=== PATIENT | female | born 1965 | race Caucasian/White ===

== ENCOUNTER 2019-05-16 11:55 | Emergency (ER) | payer BC ==
[2019-05-16 12:10] VITALS: BMI 24.3
--- NOTE | 2019-05-16 13:55 | PDOC ---
History of Present Illness - General Chief Complaint: Pain, Acute Stated Complaint: ABDOMINAL PAIN, SENT BY DOCTOR Time Seen by Provider: 05/16/19 12:26 History Source: Patient Exam Limitations: No Limitations - History of Present Illness Initial Comments: 05/16/19 13:57 53-year-old female status post Ross procedure for AVBS at [place] presents to the ED with complaints of pain to her right lower ribs worsened with movement for the past 2 days intermittently. Patient states took Motrin this morning morning which resolved her symptoms but when she called the pickling drum operator Dr. Rocha, he stated to go to the ER for chest x-ray since she did have pleural effusion postoperatively and finished her Lasix about 5 days ago. Patient denies shortness of breath, fever, nausea, or dizziness. Is this a multiple visit Asthma Patient?: No Timing/Duration: intermittent ( x 2 days) Severity: mild Associated Symptoms: reports: chest pain Aspirin Received prior to arrival: Yes: 81 mg x 1 Past History - Travel Traveled outside of the country in the last 30 days: No Close contact w/someone who was outside of country & ill: No - Past Medical History Allergies/Adverse Reactions: Allergies Allergy/AdvReac Type Severity Reaction Status Date / Time No Known Allergies Allergy Verified 05/16/19 12:10 Home Medications: Ambulatory Orders Aspirin [ASA -] 81 mg PO DAILY 05/16/19 Metoprolol Tartrate [Lopressor -] 50 mg PO BID 05/16/19 Cardiac Disorders: Yes (Ross Procedure ( 2 valves replaced)) COPD: No - Psycho Social/Smoking Cessation Hx Smoking History: Unknown if ever smoked Have you smoked in the past 12 months: No Information on smoking cessation initiated: No Hx Alcohol Use: No Drug/Substance Use Hx: No Patient Lives Alone: No Lives with/in: spouse/SO Review of Systems - Review of Systems Able to Perform ROS?: Yes Constitutional: No: Symptoms Reported HEENTM: No: Symptoms Reported Respiratory: No: Symptoms reported Cardiac (ROS): Yes: Chest Pain ABD/GI: No: Symptoms Reported : No: Symptoms Reported Musculoskeletal: Yes: Joint Pain (right lower ribs) Integumentary: No: Symptoms Reported Neurological: No: Symptoms reported Endocrine: No: Symptoms Reported Hematologic/Lymphatic: No: Symptoms Reported *Physical Exam - Vital Signs Last Vital Signs Temp Pulse Resp BP Pulse Ox 97.8 F 78 16 101/55 L 100 05/16/19 12:07 05/16/19 12:07 05/16/19 12:07 05/16/19 12:07 05/16/19 12:07 - Physical Exam General Appearance: Yes: Nourished, Appropriately Dressed. No: Apparent Distress HEENT: negative: Pale Conjunctivae Neck: positive: Supple Respiratory/Chest: positive: Chest Tender (nonreprucibled ), Lungs Clear, Normal Breath Sounds. negative: Respiratory Distress, Accessory Muscle Use Cardiovascular: positive: Regular Rhythm, Regular Rate. negative: Murmur Gastrointestinal/Abdominal: positive: Soft. negative: Tenderness Integumentary: positive: Normal Color, Warm, Moist, Other (Healed incisions to mid sternum and epigastric region) Neurologic: positive: Motor Strength 5/5 (Ambulatory) Heart Score/ECG Review - ECG Intrepretation Rhythm: Regular Rhythm (Rate 81. No ST elevation or depression. Prolonged QTC at 413 ms) ED Treatment Course - LABORATORY CBC & Chemistry Diagram: 05/16/19 14:15 05/16/19 14:15 - RADIOLOGY Radiology Studies Ordered: Category Date Time Status CHEST PA & LAT [RAD] Stat Radiology 05/16/19 12:31 Taken Medical Decision Making - Medical Decision Making 05/16/19 13:01 Chief complaint: Patient sent here by pickling drum operator Dr. Berkowitz to rule out pleural effusion secondary to recent Ross procedure for aortic valve stenosis. Patient states did have pleural effusion postoperatively but finished her Lasix approximately 5 days ago. Patient states similar pain with pleural effusion following surgery . No other complaints patient took Motrin with good effect and currently asymptomatic Exam: Patient with normal vital signs lungs clear to auscultation no reproducible pain to the right lower ribs where she complains of discomfort initially. Plan: Patient order for chest x-ray. Will consult pickling drum operator once resulted 05/16/19 14:[address] aiken, radiologist and states small right pleural effusion noted without other acute pathology. Call placed to Dr. Berkowitz/Dr. Alvarez to discuss findings 05/16/19 14:[address] Goel who is recommending a CT of the chest to rule out pericardial effusion along with visualization of the extent of effusion to the right lower lobe. Patient will have labs IV placed and EKG performed. 05/16/19 15:19 Laboratory Tests 05/16/19 05/16/19 14:15 14:15 WBC 6.7 Hgb 9.3 L Hct 27.8 L Plt Count 494 H Eosinophils % 5.6 H Sodium 142 Potassium 4.0 Chloride 108 H Carbon Dioxide 26 Anion Gap 8 BUN 9.2 Creatinine 0.5 L AST 13 L ALT 23 Alkaline Phosphatase 122 H Total Protein 6.5 Albumin 3.1 L Patient remains asymptomatic. Patient currently in CT Discharge - Follow up/Referral Referrals: Jessica Mcconnell MD [Primary Care Provider] - - Patient Discharge Instructions - Post Discharge Activity
[2019-05-16 14:41] LABS: BASO % 0.3 % (0-2.0); EOS % 5.6 % (0-4.5); HEMATOCRIT 27.8 % (32.4-45.2); HEMOGLOBIN 9.3 GM/dL (10.7-15.3); LYMPH % 22.3 % (8-40); MCH 29.3 pg (25.7-33.7); MCHC 33.4 g/dl (32.0-36.0); MEAN CELL VOLUME 87.6 fl (80-96); MEAN PLT VOLUME 7.5 fl (7.5-11.1); MONO % 9.9 % (3.8-10.2); NEUT % 61.9 % (42.8-82.8); PLATELET COUNT 494 K/MM3 (134-434); RBC 3.18 M/mm3 (3.60-5.2); WHITE BLOOD COUNT 6.7 K/mm3 (4.0-10.0)
[2019-05-16 15:05] LABS: ALBUMIN 3.1 g/dl (3.4-5.0); BILIRUBIN,TOTAL 0.6 mg/dL (0.2-1); BLOOD UREA NITROGEN 9.2 mg/dL (7-18); CALCIUM 8.9 mg/dL (8.5-10.1); CREATININE 0.5 mg/dL (0.55-1.3); TOT PROT 6.5 g/dl (6.4-8.2)
[2019-05-16 16:46] VITALS: BP 108/91; PULSE 81; TEMP 98.3
--- NOTE | 2019-05-16 16:49 | PDOC ---
*Physical Exam - Vital Signs Last Vital Signs Temp Pulse Resp BP Pulse Ox 97.8 F 78 16 101/55 L 100 05/16/19 12:07 05/16/19 12:07 05/16/19 12:07 05/16/19 12:07 05/16/19 12:07 ED Treatment Course - LABORATORY CBC & Chemistry Diagram: 05/16/19 14:15 05/16/19 14:15 - ADDITIONAL ORDERS Additional order review: Laboratory Results 05/16/19 14:15 Sodium 142 Potassium 4.0 Chloride 108 H Carbon Dioxide 26 Anion Gap 8 BUN 9.2 Creatinine 0.5 L Est GFR (CKD-EPI)AfAm 128.07 Est GFR (CKD-EPI)NonAf 110.50 Random Glucose 79 Calcium 8.9 Total Bilirubin 0.6 AST 13 L ALT 23 Alkaline Phosphatase 122 H Total Protein 6.5 Albumin 3.1 L 05/16/19 14:15 RBC 3.18 L MCV 87.6 MCHC 33.4 RDW 14.0 MPV 7.5 Neutrophils % 61.9 Lymphocytes % 22.3 Monocytes % 9.9 Eosinophils % 5.6 H Basophils % 0.3 Medical Decision Making - Medical Decision Making 05/16/19 16:44 Patient endorsed to me to follow CTA of the chest CTA has resulted shows no CT evidence of pulmonary embolus. Very small pericardial effusion. Status post interval median sternotomy with apparent aortic valve surgery in comparison to a CT study of 01/31/2019. Interval development of small right sided and trace left-sided pleural effusion is seen. There is resultant right posterior basilar compressive atelectasis. Signed by Rhett Swanson MD Paged Dr. Ng to report results. The above was discussed with the patient. 05/16/19 17:46 Case was discussed with Dr. Ng, recommended NSAIDs for the pain. Case discussed with Dr. Torre recommends PPI to be taken with NSAIDs. Prescription sent to pharmacy. Selected Entries 05/16/19 16:46 Temperature 98.3 F Pulse Rate [ 81 Radial] Respiratory 20 Rate Blood Pressure 108/91 [Left Arm] O2 Sat by Pulse 100 Oximetry (%) I discussed the physical exam findings, ancillary test results and final diagnoses with the patient. I answered all of the patient's questions. The patient was satisfied with the care received and felt comfortable with the discharge plan and treatment plan. The Patient agrees to follow up with the primary care. Discharge - Discharge Information Problems reviewed: Yes Clinical Impression/Diagnosis: Pleural effusion, Pericardial effusion Chest pain Qualifiers: Chest pain type: pleurodynia Qualified Code(s): R07.81 - Pleurodynia Condition: Stable Disposition: HOME - Additional Discharge Information Prescriptions: Ibuprofen [Motrin -] 600 mg PO QID #120 tablet Omeprazole 20 mg PO DAILY #14 tablet.dr - Follow up/Referral Referrals: Jessica Mcconnell MD [Primary Care Provider] - - Patient Discharge Instructions Patient Printed Discharge Instructions: DI for Pleural Effusion Additional Instructions: Your Discharge Instructions: You must call primary care physician within 24 hours to arrange follow-up. Return to the Emergency Department with any new, persistent or worsening symptoms, for fever, chills, SOB, dizziness or any other concerning changes that may occur. You must follow-up with your assistance representative at your scheduled appointment next week. Your assistance representative has recommended NSAIDs which include Motrin, or Advil, or naproxen for your pain. - Post Discharge Activity
--- NOTE | 2019-05-18 01:05 | EKG ---
Test Reason : Blood Pressure : / mmHG Vent. Rate : 081 BPM Atrial Rate : 081 BPM P-R Int : 114 ms QRS Dur : 088 ms QT Int : 408 ms P-R-T Axes : 045 044 060 degrees QTc Int : 473 ms NORMAL SINUS RHYTHM NONSPECIFIC T WAVE ABNORMALITY PROLONGED QT ABNORMAL ECG NO PREVIOUS ECGS AVAILABLE Confirmed by AG QUINN, FRITZ ([id number]) on 05/18/2019 1:05:02 AM Referred By: Confirmed By:FRITZ LUONG MD
== END 2019-05-16 18:07 | disposition home or self-care (01) ==
LOC: JER 11:55
DX: J90 Pleural effusion, not elsewhere classified (principal); I31.3 Pericardial effusion (noninflammatory)
CPT/HCPCS: 36415; 71046-TC-FY; 71275-TC; 80053; 85025; 93005; 93010; 99283-25; Q9967

== ENCOUNTER 2023-07-01 20:35 | Emergency (ER) | payer BC ==
[2023-07-01] MEDS ORDERED: ACETAMINOPHEN 1000 MG/100 ML BAG IVPB ONE (20:46)
[2023-07-01] MEDS ORDERED: ACETAMINOPHEN 500 MG TABLET (FP) PO ONE (20:51)
[2023-07-01] MEDS ORDERED: ACETAMINOPHEN 500 MG TABLET (FP) ONE (20:59)
[2023-07-01 21:00] LABS: HEMATOCRIT 37.6 % (32.4-45.2); HEMOGLOBIN 12.5 G/dL (10.7-15.3); MCH 28.8 pg (25.7-33.7); MCHC 33.1 g/dl (32.0-36.0); MEAN CELL VOLUME 86.9 fl (80-96); MEAN PLT VOLUME 8.3 fl (7.5-11.1); PLATELET COUNT 226.1 10^3/uL (134-434); RBC 4.33 10^6/uL (3.60-5.2); WHITE BLOOD COUNT 6.2 10^3/uL (4.0-10.8)
[2023-07-01 21:10] VITALS: BP 122/66; PULSE 70; RESP 18; TEMP 97.6; BMI 26.6
[2023-07-01 21:17] LABS: ALBUMIN 4.3 g/dl (3.4-5.0); BILIRUBIN,TOTAL 0.9 mg/dl (0.2-1); CALCIUM 9.2 mg/dl (8.5-10.1); CREATININE 0.6 mg/dl (0.6-1.3); POTASSIUM 3.4 mmol/L (3.5-5.1); TOT PROT 6.5 g/dl (6.4-8.2)
[2023-07-01 21:32] LABS: PLATELET ESTIMATE ADEQUATE
== END 2023-07-01 22:06 | disposition home or self-care (01) ==
LOC: FER 20:35
DX: R07.81 Pleurodynia (principal)
CPT/HCPCS: 36415; 71046-TC-FY; 80053; 84484; 85027; 93005; 99285-25